=== PATIENT | female | born 2000 | race Two or more races ===

== ENCOUNTER 2022-07-01 10:25 | Emergency (ER) | payer MEDICAID ==
[~2022-07-01] VITALS: Ht 154.9 cm; Wt 53.0 kg
[2022-07-01 10:46] LABS: COVID AG,FIA SOURCE NASAL SWAB
[2022-07-01] MEDS ORDERED: IBUPROFEN 400 MG TABLET PO ONE (11:00)
[2022-07-01] MEDS ORDERED: ACETAMINOPHEN 325 MG TABLET PO ONE (11:00)
[2022-07-01] MEDS ORDERED: AMOX TR/POT CLAV 875 MG/125 MG TABLET PO ONE (11:00)
[2022-07-01] MEDS ORDERED: AMOX1TAB16 PO (11:10)
[2022-07-01] MEDS ORDERED: IBUP-1506 PO (11:10)
[2022-07-01 11:11] LABS: INFLUENZA TYPE A NEGATIVE FOR TYPE A (NEGATIVE); INFLUENZA TYPE B NEGATIVE FOR TYPE B (NEGATIVE)
[2022-07-01 11:17] VITALS: BP 109/74
[2022-07-01 11:18] LABS: RAPID GROUP A STREP POSITIVE (NEGATIVE)
== END 2022-07-01 11:38 | disposition home or self-care (01) ==
LOC: EMS 10:25
DX: J02.0 Streptococcal pharyngitis (principal); N83.209 Unspecified ovarian cyst, unspecified side; Z20.822 Contact with and (suspected) exposure to COVID-19
CPT/HCPCS: 87430; 87804; 99284; Z7502; Z7610